=== PATIENT | female | born 2000 | race Caucasian/White ===

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

== ENCOUNTER 2021-07-06 22:42 | Emergency (ER) | payer OTHER ==
[~2021-07-06] VITALS: Ht 149.9 cm; Wt 92.5 kg
[2021-07-06 22:45] VITALS: BP 116/50
--- NOTE | 2021-07-06 22:45 | NUR ---
TO BED AMBULATORY
--- NOTE | 2021-07-06 22:55 | NUR ---
20 Y/O FEMALE BIB SELF, C/O CP X13HRS. PATIENT PRESENTS TO ED WITH PAIN UPON RESPIRATION ACROSS HER UPPER CHEST. PT STATES SHE HAS SOME RELIEF W/ USE OF HER ALBUTEROL INHALER WHICH SHE HAS USED X3 TODAY. PAIN UPON MANUAL PRESSURE TO UPPER CHEST. DENIES N/V/D; SKIN IS PINK/WARM/DRY; AAOX4 WITH EVEN AND STEADY GAIT; LUNGS CLEAR BL; HR EVEN AND REGULAR; PT DENIES ANY FEVER, SOB, OR COUGH AT THIS TIME; PATIENT STATES PAIN OF 7/10 AT THIS TIME; VSS; PATIENT POSITIONED FOR COMFORT; HOB ELEVATED; BEDRAILS UP X1; BED DOWN. ER MD MADE AWARE OF PT STATUS. HX: ASTHMA NKDA MEDS: ALBUTEROL
--- NOTE | 2021-07-06 23:03 | NUR ---
xray at bedside
--- NOTE | 2021-07-06 23:07 | NUR ---
er at bedside
[2021-07-06] MEDS ORDERED: predniSONE 20 MG TAB PO ONE (23:40)
[2021-07-06] MEDS ORDERED: ALBUTEROL SULFATE/IPRATROPIU 3 ML SOL IH ONE (23:40)
--- NOTE | 2021-07-06 23:57 | NUR ---
RT AT BEDSIDE
[2021-07-07 00:32] LABS: APPEARANCE,URINE CLEAR (CLEAR); BILIRUBIN,URINE NEGATIVE (NEGATIVE); BLOOD, URINE TRACE-I (NEGATIVE); COLOR,URINE YELLOW (YELLOW); LEUKOCYTE ESTERASE ,URINE NEGATIVE (NEGATIVE); NITRITE, URINE NEGATIVE (NEGATIVE); PH,URINE 7.5 (5.0-9.0); UGLUCOSE NEGATIVE (NEGATIVE)
[2021-07-07 00:57] LABS: RBC,URINE 0-5 /HPF (0-5); WBC,URINE 0-5 /HPF (0-5)
[2021-07-07 01:25] VITALS: BP 147/91
--- NOTE | 2021-07-07 01:25 | NUR ---
Patient discharged with v/s stable. Written and verbal after care instructions given and explained. Patient verbalized understanding. Ambulatory with steady gait. All questions addressed prior to discharge. Advised to follow up with PMD. 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
[2021-07-07] MEDS ORDERED: PRED20TA5 PO (11:50)
[2021-07-07] MEDS ORDERED: ALBU0.0912 IH (11:50)
== END 2021-07-07 01:25 | disposition home or self-care (01) ==
LOC: MED 22:42
DX: J45.901 Unspecified asthma with (acute) exacerbation (principal); Z79.899 Other long term (current) drug therapy
CPT/HCPCS: 71045; 81001; 81025; 93005; 94640; 99285; J7512; Q0092; 99281

== ENCOUNTER 2021-10-03 08:48 | Emergency (ER) | payer OTHER ==
[~2021-10-03] VITALS: Ht 149.9 cm; Wt 89.4 kg
[~2021-10-03 08:48] MED LIST: ALBU0.0912 IH; PRED20TA5 PO
[2021-10-03 08:51] VITALS: BP 130/79
--- NOTE | 2021-10-03 09:01 | NUR ---
PT AMB TO BED 8.
--- NOTE | 2021-10-03 09:10 | NUR ---
21 Y/O FEMALE BIB SELF C/O COUGH, SORE THROAT X 2 DAYS AND C/O SUBJECTIVE FEVER X YESTERDAY AND C/O HEADACHE,N/V , BLOODY COUGH TWICE X TODAY. PT DENIES ANY HOUSEHOLD MEMBERS BEING SICK. PT DENIES CHEST PAIN, SOB. PT DENIES TAKING ANY MEDICATION PRIOR TO ARRIVAL. BED LOCKED IN LOWEST POSITION. BED RAIL X1. PMH: ASTHMA NKA
[2021-10-03] MEDS ORDERED: ALBUTEROL SULFATE/IPRATROPIU 3 ML SOL IH ONE (09:40)
--- NOTE | 2021-10-03 09:46 | NUR ---
RT AT PT BEDSIDE
--- NOTE | 2021-10-03 09:50 | NUR ---
XR AT PT BEDSIDE
--- NOTE | 2021-10-03 09:52 | NUR ---
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
[2021-10-03] MEDS ORDERED: BENZ200C4 PO (10:35)
[2021-10-03] MEDS ORDERED: PRED20TA5 PO (10:35)
[2021-10-03] MEDS ORDERED: AZIT250T3 PO (10:35)
[2021-10-03 10:50] VITALS: BP 128/67
--- NOTE | 2021-10-03 10:51 | NUR ---
DPatient discharged with v/s stable. Written and verbal after care instructions given and explained. Patient alert, oriented and verbalized understanding of instructions. Ambulatory with steady gait. All questions addressed prior to discharge. ID band removed. Patient advised to follow up with PMD. Rx of ZITHROMAX, DELTASONE given. Patient educated on indication of medication including possible reaction and side effects. Opportunity to ask questions provided and answered.
== END 2021-10-03 10:50 | disposition home or self-care (01) ==
LOC: MED 08:48
DX: J45.901 Unspecified asthma with (acute) exacerbation (principal); Z20.822 Contact with and (suspected) exposure to COVID-19; Z79.899 Other long term (current) drug therapy; Z79.2 Long term (current) use of antibiotics
CPT/HCPCS: 71045; 87426; 94640; 99284; Q0092